=== PATIENT | male | born 2000 | race African-American/Black ===

== ENCOUNTER 2019-11-04 22:40 | Emergency (ER) | payer OTHER, SELFPAY ==
[2019-11-04] MEDS ORDERED: Ketorolac Tromethamine 30 MG/ML VIAL ONE (23:18)
--- NOTE | 2019-11-04 23:22 | RAD ---
NO DICTATION POS: [facility]
--- NOTE | 2019-11-05 07:13 | RAD ---
LEFT SHOULDER RADIOGRAPHS THREE VIEWS: 11/04/19 PROVIDED CLINICAL HISTORY: Status post injury. FINDINGS: No evidence for fracture or other acute osseous abnormality. If there are persistent clinical concern s, conservative management and following imaging advised. IMPRESSION: As above. POS: [facility]
== END 2019-11-04 23:30 | disposition home or self-care (01) ==
LOC: ERS 22:40
DX: S43.402A Unspecified sprain of left shoulder joint, initial encounter (principal); I10 Essential (primary) hypertension; F17.210 Nicotine dependence, cigarettes, uncomplicated; W18.30XA Fall on same level, unspecified, initial encounter
CPT/HCPCS: 96372; J1885